=== PATIENT | female | born 1950 | race Hispanic/Latino ===

== ENCOUNTER 2021-05-14 08:02 | Day surgery (SDC) | payer MEDICARE, OTHER ==
[~2021-05-14] VITALS: Ht 160 cm; Wt 72.6 kg
[~2021-05-14 08:02] MED LIST: ATORVASTATIN CA20 MG PO; B-121000 MCG PO; L-ARGININE1000 MG PO; METFORMIN HCL500 MG PO; VITAMIN A2400 MCG PO
[2021-05-14] MEDS ORDERED: ONE DAILY ESSE1 EACH PO (08:21)
--- NOTE | 2021-05-14 09:50 | NUR ---
05/14/21 0950 Teri Orta 0950 PATIENT ARRIVES TO PACU SLEEPING. OPENS EYES WITH VERBAL STIMULI, BACK TO SLEEP WHEN NOT STIMULATED. RESP EVEN AND UNLABORED, NC AT 3 LITERS.
--- NOTE | 2021-05-14 17:10 | OR ---
[facility] [address], [place] [address] Signed DATE OF OPERATION: 05/14/2021 SURGEON: Xenia Kathleen MD PREOPERATIVE DIAGNOSES: 1. Minimal sigmoid diverticulosis. 2. External skin tags. 3. Internal hemorrhoids. POSTOPERATIVE DIAGNOSES: 1. Minimal sigmoid diverticulosis. 2. Moderate internal hemorrhoids. 3. Two small external anal skin tags. 4. Long redundant colon. PROCEDURE: Colonoscopy without biopsy. ESTIMATED BLOOD LOSS: None. INDICATIONS: Ashley is a 70-year-old female, who came in 2010 for her colonoscopy. We found minimal sigmoid diverticulosis along with skin tags and internal hemorrhoids. She returns now for a followup screening colonoscopy. She has no lower GI complaints. She had done well with Versed and fentanyl in the past. I had given her a pamphlet in the office on colonoscopy. She recalls the nature of that test. There is risk including, but not limited to gas bloating, crampy abdominal pain, bleeding, perforation requiring surgery, and missed diagnosis. She had expressed understanding and wished to proceed. PROCEDURE IN DETAIL: Ashley was taken into our endoscopy suite and placed in the left lateral decubitus position. She was given a total of 5 mg of Versed and 150 mcg of fentanyl. A digital rectal exam was performed and this showed two small external anal skin tags. She has good sphincter tone. Not much in the way of external hemorrhoid tissue. The adult colonoscope was then introduced and advanced all around into the cecum under direct visualization of camera. It took extra sedation, abdominal compression in order to advance the scope. We had to rotate Ashley into the supine position and then back into the left lateral decubitus position. She has a long narrow redundant colon. It took a while to get the camera all the way through. Fortunately her prep was quite good. We Electronically Signed By: XENIA KATHLEEN MD 05/14/21 [id number] PATIENT NAME: ASHLEY PATINO OPERATIVE REPORT DATE OF : 52 REPORT #: [id number] PHYSICIAN: XENIA KATHLEEN MD PCP: CANDIDA FOSTER MD REPORT IS CONFIDENTIAL AND NOT TO BE RELEASED WITHOUT AUTHORIZATION [facility] [address] [place] [id number] Signed could easily see the cecum and the ileocecal valve. The scope was then slowly withdrawn. We took pictures throughout for photodocumentation. She does have diverticula in the sigmoid colon. They were moderate in size, minimal number and scattered about. The rectum was unremarkable. Upon retroflexion of scope, we can see the moderate-sized internal hemorrhoid columns. After this, the gas was suctioned out. The colonoscope removed. Ashley tolerated the procedure quite well. RECOMMENDATIONS: Ashley can return in 10 years for repeat screening colonoscopy if she would like. MD USMAN Basurto/MICHELLEL /[id number] cc: MD Dr. Candida Basurto Copies: XENIA KATHLEEN MD ~ Electronically Signed By: XENIA KATHLEEN MD 05/14/21 1710 PATIENT NAME: ASHLEY PATINO OPERATIVE REPORT DATE OF : 52 REPORT #: [id number] PHYSICIAN: XENIA KATHLEEN MD PCP: CANDIDA FOSTER MD REPORT IS CONFIDENTIAL AND NOT TO BE RELEASED WITHOUT AUTHORIZATION
== END 2021-05-14 10:30 | disposition home or self-care (01) ==
LOC: OPS 08:02 → DS 08:07 → OPS 09:45
PROVIDERS: ATTEND Colon & Rectal Surgery
PROC: 0DJD8ZZ Inspection of Lower Intestinal Tract, Via Natural or Artificial Opening Endoscopic (ICD-10-PCS; principal; 2021-05-14 09:45)
DX: Z12.11 Encounter for screening for malignant neoplasm of colon (principal); K57.30 Diverticulosis of large intestine without perforation or abscess without bleeding; K64.8 Other hemorrhoids; K64.4 Residual hemorrhoidal skin tags; Q43.8 Other specified congenital malformations of intestine
CPT/HCPCS: 99153; G0500; J2250; J3010; J7121